=== PATIENT | female | born 1945 | race Caucasian/White ===

== ENCOUNTER 2019-11-02 19:11 | Emergency (ER) | payer BC, MEDICARE ==
[~2019-11-02] VITALS: Ht 162.6 cm; Wt 52.6 kg
[~2019-11-02 19:11] MED LIST: EZET10TA PO; GLIP10TA3 PO; LISI10TA5 PO; METF1000 PO; METO-442 PO; PARO40TA PO
[2019-11-02 19:20] VITALS: BP_SYST 131
--- NOTE | 2019-11-02 19:20 | NUR ---
Patient to ER bed 2 to gown for evaluation. Side rails up.
--- NOTE | 2019-11-02 19:30 | NUR ---
ER at bedside examining patient.
--- NOTE | 2019-11-02 19:35 | NUR ---
Adjunct Political Science Instructor bedside assisting with patient.
--- NOTE | 2019-11-02 20:00 | NUR ---
Spoke with [facility] product representative Christy Knight. they state that patient is a hospice patient with a dnr, citing comfort measures only. Pt currently has pain management at facility. they requested patient be discharged back to their facility after some interim pain and anxiety management is administered.
[2019-11-02] MEDS ORDERED: LORazepam 2 MG/ML VIAL IM ONE (20:45)
[2019-11-02] MEDS ORDERED: KETOROLAC TROMETHAMINE 15 MG VIAL IM ONE (21:15)
--- NOTE | 2019-11-02 21:45 | NUR ---
Pt resting comfortably in ed bed, no acute distress noted.
[2019-11-02 22:36] VITALS: BP_SYST 131
--- NOTE | 2019-11-02 22:38 | NUR ---
Patient construction sales representative given written and verbal discharge instructions and verbalizes understanding. ER MD discussed with patient construction sales representative the treatment provided. Patient in stable condition. ID arm band removed. IV catheter removed intact and dressing applied, no active bleeding. No RX given. Patient educated on pain management and to follow up with PMD. Pain Scale 0/10. Pt being discharged back to hospice care. Opportunity for questions provided and answered.
== END 2019-11-02 22:36 | disposition home or self-care (01) ==
LOC: SED 19:11
DX: G89.29 Other chronic pain (principal); R45.83 Excessive crying of child, adolescent or adult; E11.9 Type 2 diabetes mellitus without complications; I10 Essential (primary) hypertension; Z86.79 Personal history of other diseases of the circulatory system; Z79.899 Other long term (current) drug therapy; Z88.5 Allergy status to narcotic agent; Z88.6 Allergy status to analgesic agent
CPT/HCPCS: 96374; 96375; 99284; J1885; J2060

== ENCOUNTER 2020-04-18 21:15 | Inpatient (IN) | payer OTHER, SELFPAY ==
[~2020-04-18] VITALS: Ht 165.1 cm; Wt 59.0 kg
[2020-04-18 02:15] VITALS: BP_SYST 95
[2020-04-18 21:19] VITALS: BP_SYST 140
[2020-04-18] MEDS ORDERED: NACL 0.9% 1,000 ML IV ONE ×2 (22:15→23:30)
[2020-04-18] MEDS ORDERED: PIPERACILLIN/TAZO 3.375 GM in NS 50 ML IV ONE (22:15)
[2020-04-18 22:42] LABS: BILIRUBIN,URINE 1+ (NEGATIVE); BLOOD, URINE 1+ (NEGATIVE); CLARITY/URINE CLOUDY (CLEAR); COLOR,URINE YELLOW (YELLOW); GLUCOSE,URINE NEGATIVE (NEGATIVE); KETONES,URINE TRACE (NEGATIVE); LEUKOCYTE ESTERASE ,URINE 3+ (NEGATIVE); NITRITE, URINE NEGATIVE (NEGATIVE); PH,URINE 5.5 (5.0-8.0); PROTEIN URINE 1+ (NEGATIVE); UROBILINOGEN,URINE 0.2 (0.2-1.0)
[2020-04-18 22:51] LABS: ALANINE AMINOTRANSFERASE 118 U/L (12-78); ALBUMIN 2.1 g/dL (3.4-4.8); ANION GAP 17 (5-15); ASPARTATE AMINOTRANSFERASE 131 U/L (10-37); CALCIUM 9.7 mg/dL (8.4-11.0); CHLORIDE 112 mmol/L (98-107); CREATININE 4.18 mg/dL (0.55-1.30); GLUCOSE 231 mg/dL (70-99); POTASSIUM 3.6 mmol/L (3.5-5.1); SODIUM SERUM 150 mmol/L (136-145); TOTAL BILIRUBIN 0.6 mg/dL (0.0-1.0); UREA NITROGEN, BLOOD 93 mg/dL (8-21)
[2020-04-18 22:52] LABS: INR 1.2 (0.8-1.2); PROTHROMBIN TIME 11.6 SECS (9.5-12.5)
[2020-04-18 22:58] LABS: BACTERIA,URINE MANY /HPF (None Seen); MUCUS,URINE None Seen /LPF (None Seen); WBC,URINE >100 /HPF (0-3); YEAST,URINE Few /HPF (None Seen)
[2020-04-18 23:09] LABS: HEMATOCRIT 46.4 % (36-48); HEMOGLOBIN 14.4 g/dL (12.0-16.0); MEAN CORPUSCULAR HEMOGLOBIN 27 pg (27-31); MEAN CORPUSCULAR HGB CONC 31 % (32-36); MEAN CORPUSCULAR VOLUME 88 fL (79.0-98.0); PLATELET COUNT (AUTO) 222 K/uL (130-430); RED BLOOD CELL COUNT(AUTO) 5.28 MIL/uL (4.2-6.2); RED CELL DISTRIBUTION WIDTH 17.4 % (9.0-15.0); WHITE BLOOD COUNT (AUTO) 16.5 K/uL (4.8-10.8)
[2020-04-18] MEDS ORDERED: COMR25 RC (23:28)
[2020-04-18] MEDS ORDERED: GUAI100S14 PO (23:28)
[2020-04-18] MEDS ORDERED: IPRA3AMP9 INH (23:28)
[2020-04-18] MEDS ORDERED: ASPI-1155 PO (23:28)
[2020-04-18] MEDS ORDERED: DIPH25CA83 PO (23:28)
[2020-04-18] MEDS ORDERED: LORA-258 PO ×2 (23:28)
[2020-04-18] MEDS ORDERED: GLYC1TAB9 PO (23:28)
[2020-04-18] MEDS ORDERED: SER25 PO (23:28)
[2020-04-18] MEDS ORDERED: HYDR-3607 PO (23:28)
[2020-04-18] MEDS ORDERED: DICL100G19 TP (23:28)
[2020-04-18] MEDS ORDERED: DOCU-144 PO (23:28)
[2020-04-18] MEDS ORDERED: BISA10SU77 RC (23:28)
[2020-04-18] MEDS ORDERED: SCOP1PAT21 TD (23:28)
[2020-04-18] MEDS ORDERED: POLY17PO4 PO (23:28)
[2020-04-18] MEDS ORDERED: ACET325T53 PO (23:28)
[2020-04-18] MEDS ORDERED: SENN8.6T19 PO (23:28)
[2020-04-18] MEDS ORDERED: CAT.1 PO (23:28)
[2020-04-18 23:36] LABS: BAND % (MANUAL) 17 % (0-6); BASOPHILS % (MANUAL) 0 % (0-2); EOSINOPHILS % (MANUAL) 0 % (0-7); LYMPHOCYTES % (MANUAL) 4 % (20-46); MONOCYTES % (MANUAL) 4 % (0-11)
[2020-04-18] MEDS ORDERED: PIPERACILLIN/TAZOBACTAM 3.375 GM/VIAL (ZOSYN) IV ONE (23:39)
[2020-04-19] VITALS (26 sets, daily range): BP systolic 89–160
[2020-04-19] MEDS ORDERED: KCL 20 mEq in D5/0.45NS 1000mL 1,000 ML IV SCH
[2020-04-19] MEDS ORDERED: KCL 20 mEq in D5/0.45NS 1000mL 1,000 ML IV ONE (04:16)
[2020-04-19 06:01] LABS: BASOPHILS # (AUTO) 0.1 K/uL (0.0-0.2); BASOPHILS % (AUTO) 0.3 % (0.0-2.0); EOSINOPHILS % (AUTO) 0.2 % (0.0-4.0); HEMOGLOBIN 12.1 g/dL (12.0-16.0); LYMPHOCYTES # (AUTO) 1.2 K/uL (1.0-5.5); MEAN CORPUSCULAR HEMOGLOBIN 29 pg (27-31); MEAN CORPUSCULAR HGB CONC 32 % (32-36); MEAN CORPUSCULAR VOLUME 89 fL (79.0-98.0); MONOCYTES # (AUTO) 0.6 K/uL (0.0-1.0); MONOCYTES % (AUTO) 3.2 % (1.7-9.3); NEUTROPHILS # (AUTO) 18.1 K/uL (1.8-7.7); NEUTROPHILS % (AUTO) 90.3 % (40.0-70.0); PLATELET COUNT (AUTO) 267 K/uL (130-430); RED BLOOD CELL COUNT(AUTO) 4.26 MIL/uL (4.2-6.2); RED CELL DISTRIBUTION WIDTH 17.5 % (9.0-15.0)
[2020-04-19 06:13] LABS: ANION GAP 16 (5-15); CHLORIDE 114 mmol/L (98-107); CREATININE 4.69 mg/dL (0.55-1.30); GLUCOSE 271 mg/dL (70-99); POTASSIUM 3.7 mmol/L (3.5-5.1); SODIUM SERUM 151 mmol/L (136-145); UREA NITROGEN, BLOOD 98 mg/dL (8-21)
[2020-04-19 06:22] LABS: ALANINE AMINOTRANSFERASE 108 U/L (12-78); ALBUMIN 1.8 g/dL (3.4-4.8); ASPARTATE AMINOTRANSFERASE 100 U/L (10-37); TOTAL BILIRUBIN 0.6 mg/dL (0.0-1.0)
[2020-04-19] MEDS ORDERED: NACL 0.9% 1,000 ML IV ONE (08:45)
[2020-04-19] MEDS: CEFEPIME 1 GM in D5W 50 ML IV SCH ×2 (08:52→20:58)
[2020-04-19] MEDS: IPRATROPIUM/ALBUTEROL SULFATE 3 ML AMPUL.NEB (DUONEB) INH SCH ×3 (09:00→20:09)
[2020-04-19] MEDS ORDERED: IPRATROPIUM/ALBUTEROL SULFATE 3 ML AMPUL.NEB (DUONEB) INH PRN (09:00)
[2020-04-19] MEDS: NACL 0.9% 1,000 ML IV SCH ×2 (10:03→20:47)
[2020-04-19] MEDS: PANTOPRAZOLE SODIUM 40 MG/VIAL (PROTONIX) IVP SCH (20:15)
[2020-04-20] VITALS (24 sets, daily range): BP systolic 138–188
[2020-04-20] MEDS: IPRATROPIUM/ALBUTEROL SULFATE 3 ML AMPUL.NEB (DUONEB) INH SCH ×4 (02:02→19:59)
[2020-04-20] MEDS: NACL 0.9% 1,000 ML IV SCH (04:27)
[2020-04-20 06:16] LABS: BASOPHILS # (AUTO) 0.1 K/uL (0.0-0.2); BASOPHILS % (AUTO) 0.3 % (0.0-2.0); EOSINOPHILS # (AUTO) 0.1 K/uL (0.0-0.4); EOSINOPHILS % (AUTO) 0.5 % (0.0-4.0); HEMATOCRIT 35.9 % (36-48); HEMOGLOBIN 11.6 g/dL (12.0-16.0); LYMPHOCYTES # (AUTO) 1.1 K/uL (1.0-5.5); LYMPHOCYTES % (AUTO) 4.7 % (20.5-51.5); MEAN CORPUSCULAR HEMOGLOBIN 28 pg (27-31); MEAN CORPUSCULAR HGB CONC 32 % (32-36); MEAN CORPUSCULAR VOLUME 88 fL (79.0-98.0); MONOCYTES # (AUTO) 0.6 K/uL (0.0-1.0); MONOCYTES % (AUTO) 2.6 % (1.7-9.3); NEUTROPHILS # (AUTO) 21.6 K/uL (1.8-7.7); NEUTROPHILS % (AUTO) 91.9 % (40.0-70.0); PLATELET COUNT (AUTO) 253 K/uL (130-430); RED BLOOD CELL COUNT(AUTO) 4.06 MIL/uL (4.2-6.2); RED CELL DISTRIBUTION WIDTH 17.7 % (9.0-15.0); WHITE BLOOD COUNT (AUTO) 23.5 K/uL (4.8-10.8)
[2020-04-20 06:48] LABS: ANION GAP 15 (5-15); CALCIUM 9.2 mg/dL (8.4-11.0); GLUCOSE 165 mg/dL (70-99); POTASSIUM 3.8 mmol/L (3.5-5.1); SODIUM SERUM 156 mmol/L (136-145)
[2020-04-20 06:49] LABS: ALANINE AMINOTRANSFERASE 139 U/L (12-78); ALBUMIN 1.7 g/dL (3.4-4.8); ASPARTATE AMINOTRANSFERASE 138 U/L (10-37); CHOLESTEROL 100 mg/dL (<200); CREATININE 4.46 mg/dL (0.55-1.30); HDL CHOLESTEROL 13 mg/dL (>55); LDL CHOLESTEROL 47 mg/dL (<100); TOTAL BILIRUBIN 0.3 mg/dL (0.0-1.0); TRIGLYCERIDES 161 mg/dL (30-150)
[2020-04-20 07:59] LABS: CHLORIDE 122 mmol/L (98-107)
[2020-04-20 08:00] LABS: UREA NITROGEN, BLOOD 107 mg/dL (8-21)
[2020-04-20] MEDS ORDERED: 0.45% NACL 1,000 ML IV SCH (08:30)
[2020-04-20] MEDS: CEFEPIME 1 GM in D5W 50 ML IV SCH (08:43)
[2020-04-20] MEDS ORDERED: D5W 1,000 ML IV PRN (09:34)
[2020-04-20] MEDS ORDERED: GLUCOSE 15 GM GEL (in 37.5 GM TUBE) PO PRN (09:45)
[2020-04-20] MEDS ORDERED: DEXTROSE 50% JECT 50 ML DISP.SYRIN IVP PRN (09:45)
[2020-04-20] MEDS: INSULIN REGULAR, HUMAN 100 UNITS/ML, 10 ML VIAL (humuLIN R) SUBCUT PRN ×2 (12:13→18:05)
[2020-04-20] MEDS: FLUCONAZOLE 100 mg/ NS 50 ML IV SCH (13:36)
[2020-04-20] MEDS: PIPERACILLIN/TAZO 2.25G/DEX-IS 50 ML IV SCH ×2 (14:36→21:15)
[2020-04-20] MEDS ORDERED: HEPARIN SODIUM,PORCINE 5000 UNITS/ML VIAL ONE (17:44)
[2020-04-20] MEDS: hydrALAZINE HCL 20 MG/ML VIAL IVP PRN (20:08)
[2020-04-20] MEDS: PANTOPRAZOLE SODIUM 40 MG/VIAL (PROTONIX) IVP SCH (20:10)
[2020-04-20] MEDS: hydrALAZINE HCL 25 MG TABLET PO SCH (21:15)
[2020-04-21] VITALS (24 sets, daily range): BP systolic 130–171
[2020-04-21] MEDS: INSULIN REGULAR, HUMAN 100 UNITS/ML, 10 ML VIAL (humuLIN R) SUBCUT PRN ×4 (00:33→18:02)
[2020-04-21] MEDS: IPRATROPIUM/ALBUTEROL SULFATE 3 ML AMPUL.NEB (DUONEB) INH SCH ×4 (01:00→19:50)
[2020-04-21] MEDS: hydrALAZINE HCL 25 MG TABLET PO SCH ×3 (05:19→21:24)
[2020-04-21] MEDS: PIPERACILLIN/TAZO 2.25G/DEX-IS 50 ML IV SCH ×3 (05:20→21:23)
[2020-04-21 06:33] LABS: BASOPHILS % (AUTO) 0.1 % (0.0-2.0); HEMATOCRIT 36.2 % (36-48); HEMOGLOBIN 11.5 g/dL (12.0-16.0); LYMPHOCYTES # (AUTO) 0.8 K/uL (1.0-5.5); LYMPHOCYTES % (AUTO) 3.8 % (20.5-51.5); MEAN CORPUSCULAR HEMOGLOBIN 27 pg (27-31); MEAN CORPUSCULAR HGB CONC 32 % (32-36); MEAN CORPUSCULAR VOLUME 86 fL (79.0-98.0); MONOCYTES # (AUTO) 0.5 K/uL (0.0-1.0); MONOCYTES % (AUTO) 2.3 % (1.7-9.3); NEUTROPHILS # (AUTO) 19.5 K/uL (1.8-7.7); NEUTROPHILS % (AUTO) 93.8 % (40.0-70.0); PLATELET COUNT (AUTO) 170 K/uL (130-430); RED BLOOD CELL COUNT(AUTO) 4.21 MIL/uL (4.2-6.2); RED CELL DISTRIBUTION WIDTH 17.2 % (9.0-15.0); WHITE BLOOD COUNT (AUTO) 20.8 K/uL (4.8-10.8)
[2020-04-21 07:46] LABS: ALANINE AMINOTRANSFERASE 176 U/L (12-78); ALBUMIN 1.5 g/dL (3.4-4.8); ANION GAP 17 (5-15); ASPARTATE AMINOTRANSFERASE 157 U/L (10-37); CALCIUM 9.5 mg/dL (8.4-11.0); CREATININE 3.18 mg/dL (0.55-1.30); GLUCOSE 194 mg/dL (70-99); POTASSIUM 3.2 mmol/L (3.5-5.1); SODIUM SERUM 159 mmol/L (136-145); TOTAL BILIRUBIN 0.3 mg/dL (0.0-1.0); UREA NITROGEN, BLOOD 97 mg/dL (8-21)
[2020-04-21 08:41] LABS: CHLORIDE 125 mmol/L (98-107)
[2020-04-21] MEDS ORDERED: D5/0.45 NS 1,000 ML IV SCH (08:45)
[2020-04-21] MEDS: FLUCONAZOLE 100 mg/ NS 50 ML IV SCH (12:01)
[2020-04-21] MEDS: D5W 1,000 ML IV SCH (12:01)
[2020-04-21] MEDS: KCL 20 mEq in 100 mL (PREMIX) 100 ML IV SCH ×2 (12:09→14:02)
[2020-04-21] MEDS: PANTOPRAZOLE SODIUM 40 MG/VIAL (PROTONIX) IVP SCH (18:04)
[2020-04-22] VITALS (25 sets, daily range): BP systolic 110–178
[2020-04-22] MEDS: INSULIN REGULAR, HUMAN 100 UNITS/ML, 10 ML VIAL (humuLIN R) SUBCUT PRN ×5 (00:13→23:33)
[2020-04-22] MEDS: D5W 1,000 ML IV SCH ×4 (00:38→21:47)
[2020-04-22] MEDS: IPRATROPIUM/ALBUTEROL SULFATE 3 ML AMPUL.NEB (DUONEB) INH SCH ×4 (00:41→19:41)
[2020-04-22] MEDS: hydrALAZINE HCL 20 MG/ML VIAL IVP PRN ×2 (03:30→11:56)
[2020-04-22] MEDS: hydrALAZINE HCL 25 MG TABLET PO SCH ×3 (05:12→21:45)
[2020-04-22] MEDS: PIPERACILLIN/TAZO 2.25G/DEX-IS 50 ML IV SCH ×2 (05:21→14:33)
[2020-04-22 06:49] LABS: BASOPHILS % (AUTO) 0.2 % (0.0-2.0); EOSINOPHILS # (AUTO) 0.1 K/uL (0.0-0.4); EOSINOPHILS % (AUTO) 0.3 % (0.0-4.0); HEMATOCRIT 35.3 % (36-48); LYMPHOCYTES # (AUTO) 1.1 K/uL (1.0-5.5); LYMPHOCYTES % (AUTO) 4.9 % (20.5-51.5); MEAN CORPUSCULAR HEMOGLOBIN 27 pg (27-31); MEAN CORPUSCULAR HGB CONC 31 % (32-36); MEAN CORPUSCULAR VOLUME 86 fL (79.0-98.0); MONOCYTES # (AUTO) 0.5 K/uL (0.0-1.0); MONOCYTES % (AUTO) 2.1 % (1.7-9.3); NEUTROPHILS # (AUTO) 20.7 K/uL (1.8-7.7); NEUTROPHILS % (AUTO) 92.5 % (40.0-70.0); PLATELET COUNT (AUTO) 151 K/uL (130-430); RED BLOOD CELL COUNT(AUTO) 4.11 MIL/uL (4.2-6.2); RED CELL DISTRIBUTION WIDTH 17.3 % (9.0-15.0); WHITE BLOOD COUNT (AUTO) 22.4 K/uL (4.8-10.8)
[2020-04-22 06:51] LABS: ALANINE AMINOTRANSFERASE 117 U/L (12-78); ALBUMIN 1.4 g/dL (3.4-4.8); ANION GAP 12 (5-15); CREATININE 2.53 mg/dL (0.55-1.30); GLUCOSE 235 mg/dL (70-99); POTASSIUM 3.5 mmol/L (3.5-5.1); SODIUM SERUM 150 mmol/L (136-145); TOTAL BILIRUBIN 0.4 mg/dL (0.0-1.0); UREA NITROGEN, BLOOD 78 mg/dL (8-21)
[2020-04-22 07:05] LABS: ASPARTATE AMINOTRANSFERASE 63 U/L (10-37)
[2020-04-22 07:06] LABS: CHLORIDE 120 mmol/L (98-107)
[2020-04-22] MEDS: MUPIROCIN 2% TOPICAL OINTMENT 22 GM NS SCH ×2 (12:00→21:46)
[2020-04-22] MEDS: FLUCONAZOLE 100 mg/ NS 50 ML IV SCH (13:37)
[2020-04-22] MEDS ORDERED: LORazepam 2 MG/ML VIAL IVP ONE (17:15)
[2020-04-22] MEDS: PANTOPRAZOLE SODIUM 40 MG/VIAL (PROTONIX) IVP SCH (17:58)
[2020-04-22] MEDS ORDERED: cefTRIAXone 1 GM in D5W 50 ML IV SCH (18:00)
[2020-04-23] VITALS (17 sets, daily range): BP systolic 99–186
[2020-04-23] MEDS: IPRATROPIUM/ALBUTEROL SULFATE 3 ML AMPUL.NEB (DUONEB) INH SCH ×3 (00:18→13:14)
[2020-04-23] MEDS: hydrALAZINE HCL 25 MG TABLET PO SCH ×2 (06:10→15:39)
[2020-04-23] MEDS: INSULIN REGULAR, HUMAN 100 UNITS/ML, 10 ML VIAL (humuLIN R) SUBCUT PRN ×2 (06:21→11:28)
[2020-04-23 08:24] LABS: HEMATOCRIT 33.8 % (36-48); HEMOGLOBIN 10.5 g/dL (12.0-16.0); MEAN CORPUSCULAR HEMOGLOBIN 27 pg (27-31); MEAN CORPUSCULAR HGB CONC 31 % (32-36); MEAN CORPUSCULAR VOLUME 85 fL (79.0-98.0); PLATELET COUNT (AUTO) 136 K/uL (130-430); RED BLOOD CELL COUNT(AUTO) 3.96 MIL/uL (4.2-6.2); WHITE BLOOD COUNT (AUTO) 19.4 K/uL (4.8-10.8)
[2020-04-23 08:28] LABS: ANION GAP 13 (5-15); CALCIUM 9.1 mg/dL (8.4-11.0); CHLORIDE 112 mmol/L (98-107); CREATININE 2.24 mg/dL (0.55-1.30); GLUCOSE 262 mg/dL (70-99); SODIUM SERUM 143 mmol/L (136-145); UREA NITROGEN, BLOOD 66 mg/dL (8-21)
[2020-04-23] MEDS ORDERED: ACETAMINOPHEN 650 MG/20.3 ML UDC NG PRN (09:15)
[2020-04-23] MEDS: MUPIROCIN 2% TOPICAL OINTMENT 22 GM NS SCH (09:22)
[2020-04-23] MEDS ORDERED: POTASSIUM CHLORIDE 40 MEQ in 0.45% NS 250 ML IV ONE (09:30)
[2020-04-23] MEDS: D5W 1,000 ML IV SCH (10:00)
[2020-04-23 11:25] LABS: BAND % (MANUAL) 9 % (0-6); BASOPHILS % (MANUAL) 0 % (0-2); EOSINOPHILS % (MANUAL) 1 % (0-7); LYMPHOCYTES % (MANUAL) 3 % (20-46); MONOCYTES % (MANUAL) 4 % (0-11)
[2020-04-23] MEDS: FLUCONAZOLE 100 mg/ NS 50 ML IV SCH (13:58)
[2020-04-23] MEDS: hydrALAZINE HCL 20 MG/ML VIAL IVP PRN (14:03)
== END 2020-04-23 17:01 | disposition expired | DRG 871 ==
LOC: SED 21:15 → SIC 23:46
PROVIDERS: ADMIT Family Medicine; ATTEND Family Medicine
PROC: 5A09557 Assistance with Respiratory Ventilation, Greater than 96 Consecutive Hours, Continuous Positive Airway Pressure (ICD-10-PCS; 2020-04-18)
PROC: 02HV33Z Insertion of Infusion Device into Superior Vena Cava, Percutaneous Approach (ICD-10-PCS; principal; 2020-04-20)
PROC: B548ZZA Ultrasonography of Superior Vena Cava, Guidance (ICD-10-PCS; 2020-04-20)
PROC: 5A1D70Z Performance of Urinary Filtration, Intermittent, Less than 6 Hours Per Day (ICD-10-PCS; 2020-04-21)
DX: A41.9 Sepsis, unspecified organism (principal); J96.01 Acute respiratory failure with hypoxia; J69.0 Pneumonitis due to inhalation of food and vomit; G93.41 Metabolic encephalopathy; N18.6 End stage renal disease; J15.9 Unspecified bacterial pneumonia; R65.21 Severe sepsis with septic shock; E87.0 Hyperosmolality and hypernatremia; N39.0 Urinary tract infection, site not specified; N17.9 Acute kidney failure, unspecified; I12.0 Hypertensive chronic kidney disease with stage 5 chronic kidney disease or end stage renal disease; I69.354 Hemiplegia and hemiparesis following cerebral infarction affecting left non-dominant side; E86.0 Dehydration; Z20.828 Contact with and (suspected) exposure to other viral communicable diseases; F03.90 Unspecified dementia, unspecified severity, without behavioral disturbance, psychotic disturbance, mood disturbance, and anxiety; Z66 Do not resuscitate; Z51.5 Encounter for palliative care; J44.9 Chronic obstructive pulmonary disease, unspecified; B96.20 Unspecified Escherichia coli [E. coli] as the cause of diseases classified elsewhere; E11.22 Type 2 diabetes mellitus with diabetic chronic kidney disease; E88.09 Other disorders of plasma-protein metabolism, not elsewhere classified; Z88.5 Allergy status to narcotic agent; Z88.8 Allergy status to other drugs, medicaments and biological substances; Z79.899 Other long term (current) drug therapy; Z79.82 Long term (current) use of aspirin; Z82.49 Family history of ischemic heart disease and other diseases of the circulatory system; Z87.440 Personal history of urinary (tract) infections; Z87.891 Personal history of nicotine dependence; Z74.01 Bed confinement status
CPT/HCPCS: 36415; 36600; 71045; 80048; 80053; 80061; 81000-TC; 82803-TC; 82962; 83605; 83735-TC; 83880; 84484; 85007; 85025; 85027; 85610-TC; 85730-TC; 86710; 87040-TC; 87081; 87086; 87186-TC; 90935; 93005; 94640; 94660; 96365; 99291; C9113; J0360; J0692; J0696; J1450; J1644; J1815; J2060; J2543; J3480; J7030; J7050; J7060; U0003-CS